=== PATIENT | female | born 1950 | race Caucasian/White ===

== ENCOUNTER 2018-11-29 18:02 | Emergency (ER) | payer MEDICARE ==
[~2018-11-29] VITALS: Ht 167.6 cm; Wt 159.1 kg
[~2018-11-29 18:02] MED LIST: ASPI-611 PO; DILT120C51 PO; FLUO20CA39 PO; FURO-150 PO; LISI40TA4 PO; METF500T PO; NITR100C6 PO; POTA10TA10 PO; PRAV40TA3 PO; WARF2.5T PO
[2018-11-29] MEDS ORDERED: furosemide 10 MG/1 ML 10ml inj IV ONE (18:20)
[2018-11-29 18:46] LABS: BASOPHILS # (AUTO) 0.1 X10'3 (0-0.2); BASOPHILS % (AUTO) 0.8 % (0-1); EOSINOPHILS # (AUTO) 0.2 X10'3 (0-0.9); HEMATOCRIT 44.3 % (35.0-45.0); HEMOGLOBIN 15.1 g/dl (12.0-16.0); LYMPHOCYTES # (AUTO) 1.8 X10'3 (1.1-4.8); LYMPHOCYTES % (AUTO) 23.2 % (21-51); MEAN CORPUSCULAR HEMOGLOBIN 33.4 PG (27.0-31.0); MEAN CORPUSCULAR HGB CONC 34.2 g/dL (33.0-36.5); MEAN CORPUSCULAR VOLUME 97.7 FL (78-98); MEAN PLATELET VOLUME 7.2 FL (7.4-10.4); MONOCYTES # (AUTO) 0.7 X10'3 (0-0.9); MONOCYTES % (AUTO) 9.4 % (2-12); NEUTROPHILS % (AUTO) 63.6 % (42-75); PLATELET COUNT 346 X10'3 (140-440); RED BLOOD COUNT 4.53 X10'6 (4.20-5.60); RED CELL DISTRIBUTION WIDTH 13.2 % (11.5-14.5); WHITE BLOOD COUNT 7.9 X10'3 (4.5-11.0)
--- NOTE | 2018-11-29 18:57 | NUR ---
PATIENT IS RESTING COMFORTABLY IN BED. NO DISTRESS. UPDATED ON POC.
[2018-11-29 19:10] LABS: ALANINE AMINOTRANSFERASE 21 U/L (12-78); ALBUMIN 3.2 G/DL (3.4-5.0); ALBUMIN/GLOBULIN RATIO 0.8 (1.1-1.5); ALKALINE PHOSPHATASE 83 IU/L (46-116); ANION GAP 10 (8-16); ASPARTATE AMINO TRANSFERASE 8 U/L (10-37); BILIRUBIN,TOTAL 0.2 MG/DL (0.1-1.0); BLOOD UREA NITROGEN 22 MG/DL (7-18); BUN/CREATININE RATIO 17.6 (6.6-38.0); CALCIUM 9.3 MG/DL (8.5-10.1); CHLORIDE 102 MMOL/L (99-107); CREATININE 1.25 MG/DL (0.40-0.90); GLUCOSE 141 MG/DL (70-104); POTASSIUM 3.8 MMOL/L (3.5-5.1); SODIUM 143 MMOL/L (135-145); TOTAL CARBON DIOXIDE 31.4 MMOL/L (24-32); eGFR 42 ML/MIN
[2018-11-29 20:51] VITALS: BP 134/100
--- NOTE | 2018-11-30 09:32 | NUR ---
Pt d/c'd prior to SS assessment, SS referral closed.
== END 2018-11-29 20:52 | disposition home or self-care (01) ==
LOC: ER 18:02
DX: I50.9 Heart failure, unspecified (principal); J96.90 Respiratory failure, unspecified, unspecified whether with hypoxia or hypercapnia; J44.9 Chronic obstructive pulmonary disease, unspecified; I48.91 Unspecified atrial fibrillation; R60.0 Localized edema; Z87.891 Personal history of nicotine dependence; Z79.82 Long term (current) use of aspirin; Z79.899 Other long term (current) drug therapy; Z79.01 Long term (current) use of anticoagulants
CPT/HCPCS: 36415; 71045; 80053; 83880; 84484; 85025; 93005; 96374; 99284; J1940

== ENCOUNTER 2019-01-06 09:51 | Emergency (ER) | payer MEDICARE ==
[~2019-01-06] VITALS: Ht 167.6 cm; Wt 155.0 kg
[~2019-01-06 09:51] MED LIST changes: -METF500T PO; -NITR100C6 PO
[2019-01-06 10:26] LABS: BASOPHILS # (AUTO) 0.1 X10'3 (0-0.2); BASOPHILS % (AUTO) 1.1 % (0-1); EOSINOPHILS # (AUTO) 0.2 X10'3 (0-0.9); EOSINOPHILS % (AUTO) 2.9 % (0-6); HEMOGLOBIN 15.8 g/dl (12.0-16.0); LYMPHOCYTES # (AUTO) 3.2 X10'3 (1.1-4.8); LYMPHOCYTES % (AUTO) 41.2 % (21-51); MEAN CORPUSCULAR HEMOGLOBIN 32.6 PG (27.0-31.0); MEAN CORPUSCULAR HGB CONC 33.6 g/dL (33.0-36.5); MEAN CORPUSCULAR VOLUME 97.2 FL (78-98); MEAN PLATELET VOLUME 7.2 FL (7.4-10.4); MONOCYTES # (AUTO) 0.7 X10'3 (0-0.9); MONOCYTES % (AUTO) 8.9 % (2-12); NEUTROPHILS # (AUTO) 3.6 X10'3 (1.8-7.7); NEUTROPHILS % (AUTO) 45.9 % (42-75); PLATELET COUNT 303 X10'3 (140-440); RED BLOOD COUNT 4.83 X10'6 (4.20-5.60); RED CELL DISTRIBUTION WIDTH 13.3 % (11.5-14.5); WHITE BLOOD COUNT 7.9 X10'3 (4.5-11.0)
[2019-01-06 10:43] LABS: ALANINE AMINOTRANSFERASE 20 U/L (12-78); ALBUMIN 3.3 G/DL (3.4-5.0); ALBUMIN/GLOBULIN RATIO 0.9 (1.1-1.5); ALKALINE PHOSPHATASE 78 IU/L (46-116); ANION GAP 8 (8-16); ASPARTATE AMINO TRANSFERASE 17 U/L (10-37); BILIRUBIN,TOTAL 0.3 MG/DL (0.1-1.0); BLOOD UREA NITROGEN 12 MG/DL (7-18); BUN/CREATININE RATIO 14.8 (6.6-38.0); CALCIUM 9.6 MG/DL (8.5-10.1); CHLORIDE 102 MMOL/L (99-107); CREATININE 0.81 MG/DL (0.40-0.90); GLUCOSE 138 MG/DL (70-104); POTASSIUM 3.7 MMOL/L (3.5-5.1); SODIUM 142 MMOL/L (135-145); TOTAL CARBON DIOXIDE 32.4 MMOL/L (24-32); TOTAL PROTEIN 7.1 G/DL (6.4-8.2); eGFR 70 ML/MIN
[2019-01-06 10:45] LABS: PARTIAL THROMBOPLASTIN TIME 56 SECONDS (22-32); PROTHROMBIN TIME 44.7 SECONDS (9.0-12.0)
[2019-01-06 10:48] LABS: INR 4.8 INR
[2019-01-06] MEDS ORDERED: methylPREDNISolone sod succ 125mg/2ml vial IV ONE (10:50)
[2019-01-06] MEDS ORDERED: ipratropium/albuterol 3ml nebule NEB ONE (10:50)
[2019-01-06] MEDS ORDERED: PRED20TA PO (11:54)
[2019-01-06 12:13] VITALS: BP 154/79
== END 2019-01-06 12:15 | disposition home or self-care (01) ==
LOC: ER 09:51
DX: J44.1 Chronic obstructive pulmonary disease with (acute) exacerbation (principal); D68.9 Coagulation defect, unspecified; I11.0 Hypertensive heart disease with heart failure; I50.9 Heart failure, unspecified; I48.91 Unspecified atrial fibrillation; I25.10 Atherosclerotic heart disease of native coronary artery without angina pectoris; E11.9 Type 2 diabetes mellitus without complications; E66.01 Morbid (severe) obesity due to excess calories; Z87.891 Personal history of nicotine dependence; Z79.82 Long term (current) use of aspirin
CPT/HCPCS: 36415; 71045; 80053; 84484; 85025; 85610; 85730; 93005; 94640; 94760; 96374; 99284; J2930

== ENCOUNTER 2019-05-04 04:29 | Emergency (ER) | payer MEDICARE, MEDICAID ==
[~2019-05-04] VITALS: Ht 167.6 cm; Wt 150.0 kg
[2019-05-04] MEDS ORDERED: albuterol 2.5 MG/3 ML nebule NEB ONE (04:35)
[2019-05-04] MEDS ORDERED: ipratropium/albuterol 3ml nebule NEB ONE (04:35)
[2019-05-04 05:12] LABS: BASOPHILS # (AUTO) 0.1 X10'3 (0-0.2); BASOPHILS % (AUTO) 0.9 % (0-1); EOSINOPHILS # (AUTO) 0.3 X10'3 (0-0.9); EOSINOPHILS % (AUTO) 3.5 % (0-6); HEMATOCRIT 41.4 % (35.0-45.0); HEMOGLOBIN 14.3 g/dl (12.0-16.0); LYMPHOCYTES # (AUTO) 2.3 X10'3 (1.1-4.8); LYMPHOCYTES % (AUTO) 28.3 % (21-51); MEAN CORPUSCULAR HEMOGLOBIN 34.3 PG (27.0-31.0); MEAN CORPUSCULAR HGB CONC 34.5 g/dL (33.0-36.5); MEAN CORPUSCULAR VOLUME 99.4 FL (78-98); MEAN PLATELET VOLUME 7.2 FL (7.4-10.4); MONOCYTES % (AUTO) 12.2 % (2-12); NEUTROPHILS # (AUTO) 4.4 X10'3 (1.8-7.7); NEUTROPHILS % (AUTO) 55.1 % (42-75); PLATELET COUNT 300 X10'3 (140-440); RED BLOOD COUNT 4.17 X10'6 (4.20-5.60); RED CELL DISTRIBUTION WIDTH 13.6 % (11.5-14.5)
[2019-05-04 05:19] LABS: ALANINE AMINOTRANSFERASE 20 U/L (12-78); ALBUMIN 3.5 G/DL (3.4-5.0); ALKALINE PHOSPHATASE 67 IU/L (46-116); ANION GAP 5 (8-16); ASPARTATE AMINO TRANSFERASE 10 U/L (10-37); BILIRUBIN,TOTAL 0.3 MG/DL (0.1-1.0); BLOOD UREA NITROGEN 20 MG/DL (7-18); BUN/CREATININE RATIO 21.1 (6.6-38.0); CALCIUM 8.6 MG/DL (8.5-10.1); CHLORIDE 101 MMOL/L (99-107); CREATININE 0.95 MG/DL (0.40-0.90); GLUCOSE 145 MG/DL (70-104); POTASSIUM 4.2 MMOL/L (3.5-5.1); SODIUM 138 MMOL/L (135-145); TOTAL CARBON DIOXIDE 31.8 MMOL/L (24-32); TOTAL PROTEIN 7.1 G/DL (6.4-8.2); eGFR 58 ML/MIN
[2019-05-04] MEDS ORDERED: HYDROcodone/acetaminophen 10/325mg tab PO ONE (05:45)
[2019-05-04 06:08] VITALS: BP 166/103
[2019-05-04] MEDS ORDERED: HYDR-3965 PO (06:40)
--- NOTE | 2019-05-04 06:49 | NUR ---
CALLED [facility] [phone] TO TRANSPORT PT HOME.
== END 2019-05-04 07:10 | disposition home or self-care (01) ==
LOC: ER 04:29
DX: J44.9 Chronic obstructive pulmonary disease, unspecified (principal); R20.2 Paresthesia of skin; I48.91 Unspecified atrial fibrillation; I25.10 Atherosclerotic heart disease of native coronary artery without angina pectoris; I50.9 Heart failure, unspecified; Z60.2 Problems related to living alone; Z86.79 Personal history of other diseases of the circulatory system; Z79.82 Long term (current) use of aspirin; Z79.899 Other long term (current) drug therapy; Z79.01 Long term (current) use of anticoagulants
CPT/HCPCS: 36415; 71045; 80053; 83880; 84484; 85025; 85610; 93005; 94640; 94760; 99284

== ENCOUNTER 2019-05-19 04:14 | Emergency (ER) | payer MEDICARE, MEDICAID ==
[~2019-05-19] VITALS: Ht 167.6 cm; Wt 150.0 kg
[~2019-05-19 04:14] MED LIST changes: +HYDR-3965 PO
[2019-05-19] MEDS ORDERED: ibuprofen tablet 400 MG TABLET PO ONE (05:30)
[2019-05-19] MEDS ORDERED: HYDROcodone/acetaminophen 10/325mg tab PO ONE (05:30)
--- NOTE | 2019-05-19 06:24 | NUR ---
MD WANTS PT TO CONSULT WITH MEDICAID SERVICE COORDINATOR BEFORE BEING DISCHARGED.
--- NOTE | 2019-05-19 07:36 | NUR ---
WAITING ON SS TO SEE PT.
--- NOTE | 2019-05-19 08:18 | NUR ---
YANIRA FROM CALLED AND STATES SHE WILL COME AND TALK WITH THE PT.
[2019-05-19 09:00] VITALS: BP 185/98
--- NOTE | 2019-05-19 09:01 | NUR ---
Lisa here talking with pt
[2019-05-19] MEDS ORDERED: HYDR-3965 PO (09:07)
--- NOTE | 2019-05-19 09:18 | NUR ---
WORKING ON GETTING TRANSPORT FOR PT BACK HOME. YANIRA SAYS THE PT CAN GO HOME AND IF THEY ARE ABLE TO GET A BEDSIDE COMMODE THEY WILL SEND IT TO HER HOME.
== END 2019-05-19 09:58 | disposition home or self-care (01) ==
LOC: ER 04:15
DX: S83.8X2A Sprain of other specified parts of left knee, initial encounter (principal); I48.91 Unspecified atrial fibrillation; I25.10 Atherosclerotic heart disease of native coronary artery without angina pectoris; I50.9 Heart failure, unspecified; J44.9 Chronic obstructive pulmonary disease, unspecified; I05.0 Rheumatic mitral stenosis; E66.01 Morbid (severe) obesity due to excess calories; Z79.82 Long term (current) use of aspirin; Z79.01 Long term (current) use of anticoagulants; Z87.891 Personal history of nicotine dependence; X50.1XXA Overexertion from prolonged static or awkward postures, initial encounter; Y93.89 Activity, other specified; Y92.89 Other specified places as the place of occurrence of the external cause; Y99.8 Other external cause status
CPT/HCPCS: 29505; 73560; 99284

== ENCOUNTER 2019-07-22 21:27 | Emergency (ER) | payer MEDICARE, MEDICAID ==
[~2019-07-22] VITALS: Ht 167.6 cm; Wt 153.6 kg
[~2019-07-22 21:27] MED LIST changes: -HYDR-3965 PO
[2019-07-22 22:40] LABS: PARTIAL THROMBOPLASTIN TIME 35 SECONDS (22-32)
[2019-07-22 22:41] LABS: BASOPHILS # (AUTO) 0.1 X10'3 (0-0.2); BASOPHILS % (AUTO) 0.7 % (0-1); EOSINOPHILS # (AUTO) 0.3 X10'3 (0-0.9); EOSINOPHILS % (AUTO) 2.9 % (0-6); HEMATOCRIT 42.1 % (35.0-45.0); HEMOGLOBIN 14.6 g/dl (12.0-16.0); LYMPHOCYTES # (AUTO) 2.5 X10'3 (1.1-4.8); LYMPHOCYTES % (AUTO) 28.8 % (21-51); MEAN CORPUSCULAR HEMOGLOBIN 34.4 PG (27.0-31.0); MEAN CORPUSCULAR HGB CONC 34.7 g/dL (33.0-36.5); MEAN PLATELET VOLUME 7.6 FL (7.4-10.4); MONOCYTES % (AUTO) 11.3 % (2-12); NEUTROPHILS # (AUTO) 4.9 X10'3 (1.8-7.7); NEUTROPHILS % (AUTO) 56.3 % (42-75); PLATELET COUNT 337 X10'3 (140-440); RED BLOOD COUNT 4.25 X10'6 (4.20-5.60); RED CELL DISTRIBUTION WIDTH 13.2 % (11.5-14.5); WHITE BLOOD COUNT 8.8 X10'3 (4.5-11.0)
[2019-07-22 22:50] LABS: ALANINE AMINOTRANSFERASE 21 U/L (12-78); ALBUMIN 3.5 G/DL (3.4-5.0); ALBUMIN/GLOBULIN RATIO 0.9 (1.1-1.5); ALKALINE PHOSPHATASE 72 IU/L (46-116); ANION GAP 10 (8-16); ASPARTATE AMINO TRANSFERASE 14 U/L (10-37); BILIRUBIN,TOTAL 0.2 MG/DL (0.1-1.0); BLOOD UREA NITROGEN 15 MG/DL (7-18); BUN/CREATININE RATIO 16.9 (6.6-38.0); CHLORIDE 104 MMOL/L (99-107); CREATININE 0.89 MG/DL (0.40-0.90); GLUCOSE 150 MG/DL (70-104); POTASSIUM 3.4 MMOL/L (3.5-5.1); SODIUM 143 MMOL/L (135-145); TOTAL PROTEIN 7.2 G/DL (6.4-8.2); eGFR 63 ML/MIN
[2019-07-23 00:35] LABS: D-DIMER < 0.19 MG/L FEU (0-0.50)
[2019-07-23] MEDS ORDERED: AZIT250T83 PO (00:42)
[2019-07-23 01:10] VITALS: BP 164/98
== END 2019-07-23 03:02 | disposition home or self-care (01) ==
LOC: ER 21:27
DX: J44.1 Chronic obstructive pulmonary disease with (acute) exacerbation (principal); R00.0 Tachycardia, unspecified; I48.91 Unspecified atrial fibrillation; I25.10 Atherosclerotic heart disease of native coronary artery without angina pectoris; I50.9 Heart failure, unspecified; Z79.82 Long term (current) use of aspirin; Z79.2 Long term (current) use of antibiotics; Z79.899 Other long term (current) drug therapy; Z79.01 Long term (current) use of anticoagulants; Z60.2 Problems related to living alone; Z86.79 Personal history of other diseases of the circulatory system
CPT/HCPCS: 36415; 71045; 80053; 83880; 84484; 85025; 85379; 85610; 85730; 93005; 99284

== ENCOUNTER 2019-08-01 20:35 | Emergency (ER) | payer MEDICARE, MEDICAID ==
[~2019-08-01] VITALS: Ht 167.6 cm; Wt 153.6 kg
[2019-08-01 21:30] LABS: MONOCYTES # (AUTO) 0.9 X10'3 (0-0.9)
[2019-08-01 21:32] LABS: BASOPHILS # (AUTO) 0.1 X10'3 (0-0.2); BASOPHILS % (AUTO) 1.2 % (0-1); EOSINOPHILS # (AUTO) 0.3 X10'3 (0-0.9); EOSINOPHILS % (AUTO) 3.8 % (0-6); HEMATOCRIT 41.1 % (35.0-45.0); HEMOGLOBIN 14.2 g/dl (12.0-16.0); LYMPHOCYTES # (AUTO) 2.4 X10'3 (1.1-4.8); LYMPHOCYTES % (AUTO) 36.4 % (21-51); MEAN CORPUSCULAR HEMOGLOBIN 33.8 PG (27.0-31.0); MEAN CORPUSCULAR HGB CONC 34.4 g/dL (33.0-36.5); MEAN CORPUSCULAR VOLUME 98.2 FL (78-98); MEAN PLATELET VOLUME 7.1 FL (7.4-10.4); MONOCYTES % (AUTO) 13.5 % (2-12); NEUTROPHILS % (AUTO) 45.1 % (42-75); PARTIAL THROMBOPLASTIN TIME 38 SECONDS (22-32); PLATELET COUNT 345 X10'3 (140-440); RED BLOOD COUNT 4.18 X10'6 (4.20-5.60); RED CELL DISTRIBUTION WIDTH 13.3 % (11.5-14.5); WHITE BLOOD COUNT 6.7 X10'3 (4.5-11.0)
[2019-08-01 21:34] LABS: ALANINE AMINOTRANSFERASE 20 U/L (12-78); ALBUMIN 3.5 G/DL (3.4-5.0); ALBUMIN/GLOBULIN RATIO 0.9 (1.1-1.5); ALKALINE PHOSPHATASE 69 IU/L (46-116); ANION GAP 6 (8-16); ASPARTATE AMINO TRANSFERASE 16 U/L (10-37); BILIRUBIN,TOTAL 0.2 MG/DL (0.1-1.0); BLOOD UREA NITROGEN 15 MG/DL (7-18); BUN/CREATININE RATIO 18.5 (6.6-38.0); CALCIUM 9.6 MG/DL (8.5-10.1); CHLORIDE 103 MMOL/L (99-107); CREATININE 0.81 MG/DL (0.40-0.90); GLUCOSE 135 MG/DL (70-104); POTASSIUM 4.2 MMOL/L (3.5-5.1); SODIUM 142 MMOL/L (135-145); TOTAL CARBON DIOXIDE 33.1 MMOL/L (24-32); TOTAL PROTEIN 7.5 G/DL (6.4-8.2); eGFR 70 ML/MIN
--- NOTE | 2019-08-01 21:37 | NUR ---
PT IN NAD. RESPIRATIONS REMAIN EVEN AND NON LABORED.
--- NOTE | 2019-08-01 22:55 | NUR ---
PT BACK IN BED AFTER USING [facility]. PT ABLE TO TRANSFER WITH MINIMAL ASSISTANCE REQUIRED. NO S/SX OF RESPIRATORY DISTRESS. PT MAINTAINING SPO2 @ 2L, NO INCREASED WORK OF BREATHING.
[2019-08-01] MEDS ORDERED: dexamethasone sod phosphate 10mg/ml inj IV STA (23:13)
[2019-08-01] MEDS ORDERED: ipratropium/albuterol 3ml nebule NEB ONE (23:15)
[2019-08-02] MEDS ORDERED: PRED20TA PO (00:37)
[2019-08-02] MEDS ORDERED: DOXY100C43 PO (00:37)
[2019-08-02] MEDS ORDERED: dexamethasone 4mg tablet PO ONE (00:40)
[2019-08-02 01:13] VITALS: BP 176/75
== END 2019-08-02 01:14 | disposition home or self-care (01) ==
LOC: ER 20:36
DX: J44.1 Chronic obstructive pulmonary disease with (acute) exacerbation (principal); E11.65 Type 2 diabetes mellitus with hyperglycemia; I11.0 Hypertensive heart disease with heart failure; I50.9 Heart failure, unspecified; I48.91 Unspecified atrial fibrillation; I25.10 Atherosclerotic heart disease of native coronary artery without angina pectoris; I05.0 Rheumatic mitral stenosis; Z79.82 Long term (current) use of aspirin; Z79.2 Long term (current) use of antibiotics; Z79.01 Long term (current) use of anticoagulants; Z79.899 Other long term (current) drug therapy
CPT/HCPCS: 36415; 71045; 80053; 83880; 84484; 85025; 85610; 85730; 93005; 94640; 94760; 96374; 99284; J1100

== ENCOUNTER 2019-09-01 20:45 | Emergency (ER) | payer MEDICARE, MEDICAID ==
[~2019-09-01] VITALS: Ht 167.6 cm; Wt 153.6 kg
[~2019-09-01 20:45] MED LIST changes: +PRED20TA PO
[2019-09-01] MEDS ORDERED: diltiazem 5mg/ml 5ml inj. IV ONE ×2 (20:55→22:05)
[2019-09-01 21:09] LABS: BASOPHILS # (AUTO) 0.1 X10'3 (0-0.2); BASOPHILS % (AUTO) 0.7 % (0-1); EOSINOPHILS # (AUTO) 0.3 X10'3 (0-0.9); EOSINOPHILS % (AUTO) 3.2 % (0-6); HEMATOCRIT 41.5 % (35.0-45.0); HEMOGLOBIN 14.3 g/dl (12.0-16.0); LYMPHOCYTES # (AUTO) 3.8 X10'3 (1.1-4.8); LYMPHOCYTES % (AUTO) 47.9 % (21-51); MEAN CORPUSCULAR HGB CONC 34.4 g/dL (33.0-36.5); MEAN CORPUSCULAR VOLUME 98.8 FL (78-98); MEAN PLATELET VOLUME 6.9 FL (7.4-10.4); MONOCYTES # (AUTO) 0.9 X10'3 (0-0.9); MONOCYTES % (AUTO) 11.2 % (2-12); PLATELET COUNT 321 X10'3 (140-440); RED CELL DISTRIBUTION WIDTH 13.9 % (11.5-14.5)
[2019-09-01 21:19] LABS: PARTIAL THROMBOPLASTIN TIME 36 SECONDS (22-32)
[2019-09-01 21:22] LABS: ALANINE AMINOTRANSFERASE 19 U/L (12-78); ALBUMIN 3.6 G/DL (3.4-5.0); ALBUMIN/GLOBULIN RATIO 0.9 (1.1-1.5); ALKALINE PHOSPHATASE 74 IU/L (46-116); ANION GAP 8 (8-16); ASPARTATE AMINO TRANSFERASE 7 U/L (10-37); BILIRUBIN,TOTAL 0.3 MG/DL (0.1-1.0); BLOOD UREA NITROGEN 15 MG/DL (7-18); BUN/CREATININE RATIO 17.9 (6.6-38.0); CALCIUM 9.3 MG/DL (8.5-10.1); CHLORIDE 100 MMOL/L (99-107); CREATININE 0.84 MG/DL (0.40-0.90); GLUCOSE 167 MG/DL (70-104); POTASSIUM 3.7 MMOL/L (3.5-5.1); SODIUM 139 MMOL/L (135-145); TOTAL CARBON DIOXIDE 30.6 MMOL/L (24-32); TOTAL PROTEIN 7.6 G/DL (6.4-8.2); eGFR 67 ML/MIN
[2019-09-01 21:30] LABS: TROPONIN I < 0.04 NG/ML (0.0-0.05)
[2019-09-01] MEDS ORDERED: furosemide 10 MG/1 ML 10ml inj IV ONE (22:05)
[2019-09-01] MEDS ORDERED: metoprolol tartrate 1mg/ml inj IV PRN (22:55)
[2019-09-01] MEDS ORDERED: ketorolac trometh. 30mg/ml inj. IV ONE (23:50)
[2019-09-02 00:23] VITALS: BP 149/95
== END 2019-09-02 01:37 | disposition home or self-care (01) ==
LOC: ER 20:45
DX: J44.1 Chronic obstructive pulmonary disease with (acute) exacerbation (principal); I48.20 Chronic atrial fibrillation, unspecified; R60.0 Localized edema; E66.01 Morbid (severe) obesity due to excess calories; I25.10 Atherosclerotic heart disease of native coronary artery without angina pectoris; I50.9 Heart failure, unspecified; I25.2 Old myocardial infarction; E11.9 Type 2 diabetes mellitus without complications; I05.9 Rheumatic mitral valve disease, unspecified; Z87.891 Personal history of nicotine dependence; Z79.01 Long term (current) use of anticoagulants; Z79.82 Long term (current) use of aspirin; Z79.899 Other long term (current) drug therapy
CPT/HCPCS: 36415; 71045; 80053; 83880; 84484; 85025; 85610; 85730; 93005; 96374; 96375; 96376; 99284; J1885; J1940; J3490

== ENCOUNTER 2020-06-02 10:47 | Emergency (ER) | payer MEDICARE, MEDICAID ==
[~2020-06-02] VITALS: Ht 167.6 cm; Wt 160.0 kg
[~2020-06-02 10:47] MED LIST changes: -PRED20TA PO; -WARF2.5T PO; +WARF2.5T2 PO
[2020-06-02 11:29] LABS: BASOPHILS # (AUTO) 0.1 X10'3 (0-0.2); BASOPHILS % (AUTO) 1.5 % (0-1); EOSINOPHILS # (AUTO) 0.2 X10'3 (0-0.9); EOSINOPHILS % (AUTO) 2.4 % (0-6); HEMATOCRIT 42.3 % (35.0-45.0); HEMOGLOBIN 14.6 g/dl (12.0-16.0); LYMPHOCYTES # (AUTO) 2.1 X10'3 (1.1-4.8); LYMPHOCYTES % (AUTO) 26.6 % (21-51); MEAN CORPUSCULAR HGB CONC 34.4 g/dL (33.0-36.5); MEAN CORPUSCULAR VOLUME 95.7 FL (78-98); MEAN PLATELET VOLUME 7.3 FL (7.4-10.4); MONOCYTES # (AUTO) 0.7 X10'3 (0-0.9); MONOCYTES % (AUTO) 8.7 % (2-12); NEUTROPHILS # (AUTO) 4.7 X10'3 (1.8-7.7); NEUTROPHILS % (AUTO) 60.8 % (42-75); PLATELET COUNT 281 X10'3 (140-440); RED BLOOD COUNT 4.42 X10'6 (4.20-5.60); RED CELL DISTRIBUTION WIDTH 13.2 % (11.5-14.5); WHITE BLOOD COUNT 7.7 X10'3 (4.5-11.0)
[2020-06-02 11:52] LABS: ALANINE AMINOTRANSFERASE 11 U/L (12-78); ALBUMIN 3.7 G/DL (3.4-5.0); ALKALINE PHOSPHATASE 86 IU/L (46-116); ANION GAP 6 (8-16); ASPARTATE AMINO TRANSFERASE 13 U/L (10-37); BILIRUBIN,TOTAL 0.3 MG/DL (0.1-1.0); BLOOD UREA NITROGEN 11 MG/DL (7-18); BUN/CREATININE RATIO 12.2 (6.6-38.0); CALCIUM 9.5 MG/DL (8.5-10.1); CHLORIDE 100 MMOL/L (99-107); GLUCOSE 172 MG/DL (70-104); POTASSIUM 3.9 MMOL/L (3.5-5.1); SODIUM 140 MMOL/L (135-145); TOTAL PROTEIN 7.5 G/DL (6.4-8.2); eGFR 62 ML/MIN
[2020-06-02] MEDS ORDERED: normal saline 1000ML IV soln IVB ONE (12:15)
[2020-06-02] MEDS ORDERED: diltiazem 5mg/ml 5ml inj. IV ONE ×3 (12:15→16:35)
[2020-06-02] MEDS ORDERED: morphine 4 MG/ML inj SYRINge IV ONE (12:15)
[2020-06-02 12:46] LABS: CLARITY,URINE CLEAR (Clear); COLOR,URINE STRAW (Yellow); GLUCOSE, URINE NEGATIVE (Neg); KETONES,URINE NEGATIVE (Neg); LEUKOCYTE ESTERASE ,URINE NEGATIVE (Neg); NITRITES, URINE NEGATIVE (Neg); OCCULT BLOOD,URINE NEGATIVE (Neg); PH,URINE 7.5 (4.8-8.0); PROTEIN,URINE 30 mg/dl (Neg); UROBILINOGEN,URINE 0.2 E.U/dL (0.2-1.0)
[2020-06-02 12:52] LABS: UA COLLECTION TYPE STRAIGHT CATH
[2020-06-02 12:56] LABS: BACTERIA,URINE NONE SEEN /HPF (Neg); COARSE GRANULAR CAST 0-3 /LPF (NEGATIVE); MUCUS STRANDS NONE SEEN /LPF (Neg); RBC,URINE 0-2 /HPF (0-2); SQUAMOUS EPITHELIAL CELL,UR NONE SEEN /LPF (FEW); WBC,URINE 0-4 /HPF (0-4)
[2020-06-02] MEDS ORDERED: diltiazem CD 120mg capsule (once-daily) PO ONE (13:20)
[2020-06-02] MEDS ORDERED: furosemide 10 MG/1 ML 10ml inj IV ONE (13:25)
[2020-06-02] MEDS ORDERED: lisinopril 10 MG tablet PO ONE (13:25)
[2020-06-02] MEDS ORDERED: morphine 2 MG/ML inj. syringe IV ONE (14:55)
[2020-06-02] MEDS ORDERED: diltiazem 30mg tablet PO ONE (15:00)
--- NOTE | 2020-06-02 15:30 | NUR ---
Per pt, her HR typically sits around 100 bpm
[2020-06-02 17:25] VITALS: BP 140/84
--- NOTE | 2020-06-02 17:43 | NUR ---
pt. upset because the drKyle is discharging her. i walked by the room and heard the pt. say " this place probably has bed bugs too" I walked in the room and said "really that is not a very nice thing to say". pt. stated well I have not been treated very well. i ask what i could do for her. she said" that young meghan wadded up my brand new shirt and through it away". i checked the garbage can and found no shirt. I told her i just looked in the trash and could not find a shirt. she then said very snotty " he just rolled it up with the sheets and through it out with the sheets. i found the tech who changed the pt's bedding and we went to the laundry bend where he put it. laundry had already been picked up by our wonderful house keepers. we went to the laundry room and went through 10 bags of dirty laundry. we found a tie light and dark blue shirt with laundry. pt. came in with no pants and a diaper. we placed her in two gowns to cover her from both sides and called her a cab to take her home. we first attempted [employer], but there were no drivers available . i went over and beyond to please this pt. pt. taken out to the cab in a wheel chair.
== END 2020-06-02 18:00 | disposition home or self-care (01) ==
LOC: ER 10:47
DX: M79.605 Pain in left leg (principal); R53.1 Weakness; I48.91 Unspecified atrial fibrillation; I25.10 Atherosclerotic heart disease of native coronary artery without angina pectoris; I50.9 Heart failure, unspecified; E78.00 Pure hypercholesterolemia, unspecified; I11.0 Hypertensive heart disease with heart failure; I25.2 Old myocardial infarction; J44.9 Chronic obstructive pulmonary disease, unspecified; G47.30 Sleep apnea, unspecified; E11.9 Type 2 diabetes mellitus without complications; Z60.2 Problems related to living alone; Z79.82 Long term (current) use of aspirin; Z79.01 Long term (current) use of anticoagulants; Z79.899 Other long term (current) drug therapy
CPT/HCPCS: 36415; 71045; 80053; 81001; 83880; 84484; 85025; 93005; 96374; 96375; 96376; 99285; J1940; J2270; J7030; J3490